=== PATIENT | male | born 1980 | race Caucasian/White ===

== ENCOUNTER → 2016-11-18 | Outpatient (CLI) | payer OTHER ==
--- NOTE | 2016-11-19 17:42 | XCELERA REPORT ---
[address] [address] Transthoracic Echocardiogram Report Name: CLARENCE QUIÑONEZ Age: 36 yrs Gender: Male : 1980 Patient Status: Outpatient Patient Location: [facility] Study Date: 11/18/2016 10:59 AM Height: 71 in Weight: 190 lb BSA: 2.1 m2 Procedure: A complete two-dimensional transthoracic echocardiogram was performed (2D, M-mode, spectral and color flow Doppler). The study was technically difficult with many images being suboptimal in quality. Reason For Study: ALCOHOLIC CARDIOMYOPATHY Ordering Physician: ROSANNE KLEIN Performed By: Sofie De Luna Interpretation Summary LV EF is 50% Left ventricular systolic function is mildly reduced. There is borderline concentric left ventricular hypertrophy. The left ventricle is grossly normal size. LV diastolic function could not be adequately assessed. There is mild global hypokinesis of the left ventricle. The right ventricle is grossly normal size. There is normal right ventricular wall thickness. The right ventricular systolic function is normal. The right atrium is normal in size The left atrial size is normal. There is a trace amount of mitral regurgitation There is no mitral valve stenosis. There is no aortic valve stenosis No aortic regurgitation is present. There is a trace or physiologic amount of tricuspid regurgitation Tricuspid regurgitation jet envelope not well defined to measure RV systolic pressure accurately. There is no pericardial effusion. MMode/2D Measurements \T\ Calculations RVDd: 2.4 cm LVIDd: 5.2 cm FS: 20.4 % Ao root diam: 3.8 cm IVSd: 0.93 cm LVIDs: 4.2 cm EDV(Teich): Ao root area: LVPWd: 0.90 cm 130.9 ml ESV(Teich): 11.1 cm2 76.6 ml LA dimension: 2.8 cm EF(Teich): 41.4 % LVOT diam: LVLd ap4: 6.5 cm SV(MOD-sp4): 2.6 cm EDV(MOD-sp4): 39.0 ml LVOT area: 86.0 ml 5.2 cm2 LVLs ap4: 5.6 cm ESV(MOD-sp4): 47.0 ml EF(MOD-sp4): 45.3 % Doppler Measurements \T\ Calculations MV E max amarilis: MV P1/2t max amarilis: Ao V2 max: LV V1 max P.3 cm/sec 69.8 cm/sec 100.9 cm/sec 3.1 mmHg MV A max amarilis: MV P1/2t: 50.3 msec Ao max PG: LV V1 max: 56.7 cm/sec 4.1 mmHg 88.7 cm/sec MV E/A: 1.3 MVA(P1/2t): 4.4 cm2 MV dec slope: MANISHA(V,D): 4.6 cm2 406.8 cm/sec2 PA V2 max: TR max amarilis: 62.2 cm/sec 178.1 cm/sec PA max PG: TR max P.7 mmHg 1.5 mmHg Left Ventricle The left ventricle is grossly normal size. There is borderline concentric left ventricular hypertrophy. Left ventricular systolic function is mildly reduced. LV EF is 50%. LV diastolic function could not be adequately assessed. There is mild global hypokinesis of the left ventricle. Right Ventricle The right ventricle is grossly normal size. There is normal right ventricular wall thickness. The right ventricular systolic function is normal. Atria The right atrium is normal in size. The left atrial size is normal. Interarterial septum not well visualized and not well dopplered. Cannot comment on ASD/PFO presence. Mitral Valve The mitral valve is grossly normal. There is no mitral valve stenosis. There is a trace amount of mitral regurgitation. Aortic Valve The aortic valve is grossly normal. There is no aortic valve stenosis. No aortic regurgitation is present. Tricuspid Valve The tricuspid valve is not well visualized, but is grossly normal. There is no tricuspid stenosis. There is a trace or physiologic amount of tricuspid regurgitation. Tricuspid regurgitation jet envelope not well defined to measure RV systolic pressure accurately. Pulmonic Valve The pulmonic valve is not well visualized. Great Vessels The aortic root is not well visualized but is probably normal size. The inferior vena cava was not well visualized. Effusions There is no pericardial effusion. : ROSANNE KLEIN > Quentin Fleming
== END ==
LOC: SP 10:43
PROVIDERS: ATTEND Family Medicine
DX: I42.6 Alcoholic cardiomyopathy (principal)
CPT/HCPCS: 93306

== ENCOUNTER 2019-06-17 21:04 | Emergency (ER) | payer OTHER ==
--- NOTE | 2019-06-17 22:34 | RADIOLOGY REPORT (SQ) ---
EXAM DESCRIPTION: XR ANKLE 3 OR MORE VIEWS COMPLETED DATE/TME: 06/17/2019 21:36 CLINICAL HISTORY: 38 years, Male, pain COMPARISON: None. NUMBER OF VIEWS: Three TECHNIQUE: Frontal, oblique, and lateral radiographs were obtained LIMITATIONS: None. FINDINGS: Well-corticated ossific densities project adjacent to the inferior aspects of the medial and lateral malleoli, likely indicating sequela of remote trauma. Otherwise, remaining visualized osseous structures appear normal without acute fracture or dislocation. No soft tissue swelling is evident. IMPRESSION: No acute osseous anomaly. copyright 2010 [employer]- All Rights Reserved
--- NOTE | 2019-06-17 22:46 | ER Document Report ---
HPI - HPI Time Seen by Provider: 06/17/19 22:26 Pain Level: 5 Notes: Patient is an otherwise healthy 38-year-old male presenting to the emergency department with complaints of left-sided calcaneal pain. Patient reports he stepped out of his boat and had immediate pain that ran from the sole of his foot up through the back of his calf. He denies making any inappropriate twisting movements and denies any fall. Denies any history of previous trauma to this leg. - REPRODUCTIVE Reproductive: DENIES: : Past Medical History - General Information source: Patient - Social History Smoking Status: Current Every Day Smoker Frequency of alcohol use: None Drug Abuse: None Family History: Reviewed & Not Pertinent Patient has suicidal ideation: No Patient has homicidal ideation: No Renal/ Medical History: Denies: Hx Kidney Stones GI Medical History: Denies: Hx Crohn's Disease, Hx Diverticulitis, Hx Gastritis, Hx Gastroesophageal Reflux Disease, Hx Irritable Bowel, Hx Ulcer, Hx Ulcerative Colitis Musculoskeletal Medical History: Reports Hx Gout Past Surgical History: Reports: Hx Orthopedic Surgery - right foot - Immunizations Hx Diphtheria, Pertussis, Tetanus Vaccination: Yes Vertical Provider Document - CONSTITUTIONAL Notes: PHYSICAL EXAMINATION: GENERAL: Well-appearing, well-nourished and in no acute distress. HEAD: Atraumatic, normocephalic. EYES: Pupils equal round extraocular movements intact, conjunctiva are normal. ENT: Nares patent NECK: Normal range of motion LUNGS: No respiratory distress Musculoskeletal: Normal range of motion, no obvious erythema, ecchymosis or swelling noted to left lower extremity. Patient has point tenderness over the Achilles tendon at the inferior aspect. He has point tenderness over the calcaneus. Normal flexion and dorsiflexion of the foot. Strong dorsalis pedis pulse. Cap refill less than 3 seconds. NEUROLOGICAL: Normal speech. PSYCH: Normal mood, normal affect. SKIN: Warm, Dry, normal turgor, no rashes or lesions noted. - INFECTION CONTROL TRAVEL OUTSIDE OF THE [place] IN LAST 30 DAYS: No Course - Re-evaluation Re-evalutation: X-rays were negative for any acute bony injury. It is possible this is a ligament injury. This was discussed with the patient. The plan will be to place patient in appropriate immobilization and placed on crutches. He will follow-up with orthopedics if his pain does not improve over the next 1 to 2 days. He declines the need for prescription pain medications as he states that he does not take any opioid analgesics. I encouraged him to take Tylenol or ibuprofen for pain as well as ice and elevate the affected extremity. The patient's emergency department workup and current diagnosis were explained to the patient and or family. Follow-up instructions were provided. Medications if prescribed were discussed. Instructions for when to return to the emergency department including specific worrisome symptoms were discussed with the patient and/or family. - Vital Signs Vital signs: Temp Pulse Resp BP Pulse Ox 98.4 F 110 H 115/85 93 06/17/19 21:14 06/17/19 21:14 06/17/19 21:14 06/17/19 21:14 Procedures - Immobilization Left leg Pre-Proc Neuro Vasc Exam: Normal Immobilizer type: Crutches, Long leg posterior Performed by: PCT Post-Proc Neuro Vasc Exam: Normal Discharge - Discharge Clinical Impression: Left foot pain Left ankle pain Qualifiers: Chronicity: acute Qualified Code(s): M25.572 - Pain in left ankle and joints of left foot Condition: Stable Disposition: HOME, SELF-CARE Instructions: Use of Crutches ([facility]), Ice & Elevation ([facility]) Additional Instructions: The x-ray done here in the emergency department today was unremarkable and does not show any acute abnormality. Unfortunately x-rays do not show ligaments and tendons. It is possible based upon your symptoms and your description of your pain that you have a ligament injury to the back of your ankle that runs up to the back of your knee. For this reason we have put you in an immobilizing splint letter immobilizes your ankle up to your knee. I would like you to use the crutches and maintain a nonweightbearing status. At this pain does not subside on its own over the next 1 to 2 days I would like you to call orthopedics to schedule a follow-up with them. If you are unable to follow-up with orthopedics please follow-up with your primary care provider. Let them know you are seen in the emergency department and had normal x-rays. Let them know that the next step for consideration would be a nonemergent MRI. You may safely take Tylenol or ibuprofen for pain Forms: Return to Work Referrals: ANGELICA BOO MD [ACTIVE STAFF] - Follow up as needed MILLAN,TUNDE W JR, DO [ACTIVE PROVISIONAL STAFF] - Follow up as needed
[2019-06-18 00:20] VITALS: BP 118/82
== END 2019-06-17 23:55 | disposition home or self-care (01) ==
LOC: ER 21:04
DX: M89.8X7 Other specified disorders of bone, ankle and foot (principal); M25.572 Pain in left ankle and joints of left foot; F17.200 Nicotine dependence, unspecified, uncomplicated
CPT/HCPCS: 99283

== ENCOUNTER 2020-06-12 11:27 | Emergency (ER) | payer SELFPAY ==
[2020-06-12] MEDS ORDERED: IBUPROFEN 800 MG TABLET PO ONE (11:52)
--- NOTE | 2020-06-12 11:54 | ER Document Report ---
HPI - HPI Patient complains to provider of: Right elbow tenderness Time Seen by Provider: 06/12/20 11:45 Onset: Last week Onset/Duration: Persistent Quality of pain: Achy Pain Level: 4 Context: Patient states that he fell off of a ladder 6 days ago but landed on outstretched hands. Patient complains of right elbow tenderness with swelling. Patient complains of increased pain when he rests his elbow on a hard surface. 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 Patient denies any fever. Associated Symptoms: Other - Right elbow tenderness, right forearm and right upper arm tenderness Exacerbated by: Movement Relieved by: Denies Similar symptoms previously: No Recently seen / treated by doctor: No - ROS ROS below otherwise negative: Yes Systems Reviewed and Negative: Yes All other systems reviewed and negative - CONSTITUTIONAL Constitutional: DENIES: Fever, Chills - NEURO Neurology: DENIES: Weakness - MUSCULOSKELETAL Musculoskeletal: REPORTS: Extremity pain, Swelling - Right elbow - DERM Skin Color: Normal Skin Problems: None Past Medical History - General Information source: Patient - Social History Smoking Status: Current Every Day Smoker Frequency of alcohol use: Occasional Drug Abuse: Marijuana Occupation: Construction Family History: Reviewed & Not Pertinent - Past Medical History Cardiac Medical History: Reports: Other - Cardiomyopathy Renal/ Medical History: Denies: Hx Kidney Stones Musculoskeletal Medical History: Reports Hx Gout Past Surgical History: Reports: Hx Orthopedic Surgery - right foot - Immunizations Hx Diphtheria, Pertussis, Tetanus Vaccination: Yes Vertical Provider Document - CONSTITUTIONAL Agree With Documented VS: Yes Exam Limitations: No Limitations General Appearance: WD/WN, No Apparent Distress - INFECTION CONTROL TRAVEL OUTSIDE OF THE [place] IN LAST 30 DAYS: No - HEENT HEENT: Atraumatic, Normocephalic - NECK Neck: Normal Inspection - RESPIRATORY Respiratory: Breath Sounds Normal, No Respiratory Distress - CARDIOVASCULAR Cardiovascular: Regular Rate, Regular Rhythm Pulses: Normal: Radial - BACK Back: Normal Inspection - MUSCULOSKELETAL/EXTREMETIES Musculoskeletal/Extremeties: MAEW, FROM, Tender - Patient with tenderness and swelling to the olecranon bursa of the right elbow, no overlying erythema, full range of motion to joint.. negative: Eccymosis Notes: Matt with palpation of the proximal right forearm and right humerus - NEURO Level of Consciousness: Awake, Alert, Appropriate Motor/Sensory: No Motor Deficit - DERM Integumentary: Warm, Dry, No Rash Course - Re-evaluation Re-evalutation: 06/12/20 11:54 Patient states that he works in construction and due to the pain in the elbow he has adjusted how he works and uses a hammer. Patient acknowledges that he might be having arm pain due to the change in body mechanics recently. 06/12/20 12:39 X-rays reviewed, no obvious fracture. Will immobilize elbow with a padded Meliton and encourage patient to avoid any friction or weightbearing of the right elbow onto hard surfaces. No evidence for any septic arthritis or septic bursitis at this time. Patient without any erythema overlying the area. Patient nontoxic in appearance. Good return precautions discussed with patient. - Vital Signs Vital signs: Temp Pulse Resp BP Pulse Ox 97.8 F 109 H 16 117/87 H 97 06/12/20 11:32 06/12/20 11:32 06/12/20 11:32 06/12/20 11:32 06/12/20 11:32 - Diagnostic Test Radiology reviewed: Image reviewed, Reports reviewed Procedures - Immobilization Right Elbow Pre-Proc Neuro Vasc Exam: Normal Immobilizer type: Meliton wrap Performed by: PCT Post-Proc Neuro Vasc Exam: Normal Alignment checked and good: Yes Discharge - Discharge Clinical Impression: Olecranon bursitis, right elbow, Muscle strain Condition: Stable Disposition: HOME, SELF-CARE Instructions: Meliton Wrap ([facility]), Muscle Relaxers ([facility]), Muscle Strain ([facility]), Olecranon Bursitis ([facility]) Additional Instructions: Return immediately for any new or worsening symptoms: Increased swelling, redness, fever or any concerning new symptoms Followup with your primary care provider, call tomorrow to make a followup appointment Avoid resting elbow on any hard surfaces Follow-up with orthopedics for any persistent pain or problems Prescriptions: Cyclobenzaprine HCl [Flexeril 10 Mg Tablet] 10 mg PO TID PRN #12 tablet PRN Reason: Naproxen [Naprosyn 250 Nmg Tablet] 1 tab PO BID #14 tablet Forms: Return to Work Referrals: [facility] [Primary Care Provider] - Follow up as needed [facility] [Provider Group] - Follow up as needed
--- NOTE | 2020-06-12 12:36 | RADIOLOGY REPORT (SQ) ---
EXAM DESCRIPTION: FOREARM RIGHT IMAGES COMPLETED DATE/TIME: 06/12/2020 12:17 pm REASON FOR STUDY: fall from ladder, RUE pain COMPARISON: None. NUMBER OF VIEWS: Two views. TECHNIQUE: Two radiographic images acquired of the right forearm, including elbow and wrist in at le ast one projection. LIMITATIONS: None. FINDINGS: MINERALIZATION: Normal. BONES: No acute fracture. No worrisome bone lesions. SOFT TISSUES: Soft tissue swelling over the olecranon. OTHER: No other significant finding. IMPRESSION: Soft tissue swelling over the olecranon. Is there history of bursitis? No acute osseou s finding. TECHNICAL DOCUMENTATION: JOB ID: [id number] 2010 [employer]- All Rights Reserved Reading location - IP/workstation name: [email or web address]
--- NOTE | 2020-06-12 12:37 | RADIOLOGY REPORT (SQ) ---
EXAM DESCRIPTION: HUMERUS RIGHT IMAGES COMPLETED DATE/TIME: 06/12/2020 12:17 pm REASON FOR STUDY: fall from ladder, RUE pain COMPARISON: None. NUMBER OF VIEWS: Two views. TECHNIQUE: Two radiographic images were acquired of the right humerus to include elbow and shoulder in at least one projection. LIMITATIONS: None. FINDINGS: MINERALIZATION: Normal. BONES: No acute fracture or dislocation. No worrisome bone lesions. SOFT TISSUES: No obvious swelling or foreign body. OTHER: No other significant finding. IMPRESSION: NEGATIVE STUDY OF THE RIGHT HUMERUS. NO RADIOGRAPHIC EVIDENCE OF ACUTE INJURY. TECHNICAL DOCUMENTATION: JOB ID: [id number] 2010 [employer]- All Rights Reserved Reading location - IP/workstation name: [email or web address]
[2020-06-12 13:17] VITALS: BP 122/86
== END 2020-06-12 13:20 | disposition home or self-care (01) ==
LOC: ER 11:27
DX: M70.21 Olecranon bursitis, right elbow (principal); M25.521 Pain in right elbow; W11.XXXA Fall on and from ladder, initial encounter; F17.200 Nicotine dependence, unspecified, uncomplicated; Z87.442 Personal history of urinary calculi
CPT/HCPCS: 99283